=== PATIENT | male | born 1990 | race Asian ===

== ENCOUNTER 2017-08-21 13:52 | Emergency (ER) | payer SELFPAY ==
[~2017-08-21] VITALS: Ht 188 cm; Wt 111.1 kg
[2017-08-21 14:00] VITALS: BP 137/77
== END 2017-08-21 15:12 | disposition home or self-care (01) ==
LOC: ED 13:52
DX: T23.231A Burn of second degree of multiple right fingers (nail), not including thumb, initial encounter (principal); T31.0 Burns involving less than 10% of body surface; X10.2XXA Contact with fats and cooking oils, initial encounter; Y93.G3 Activity, cooking and baking; Y99.8 Other external cause status; Y92.89 Other specified places as the place of occurrence of the external cause
CPT/HCPCS: 90715